=== PATIENT | female | born 1985 | race Asian ===

== ENCOUNTER 2023-02-15 13:02 | Outpatient (CLI) | payer SELFPAY ==
[2023-02-17 15:50] LABS: TB Interpretation Negative (Negative)
== END 2023-02-15 13:03 | disposition home or self-care (01) ==
LOC: LBO 03-30 13:02
PROVIDERS: Visit Provider Nurse Practitioner Family
DX: Z02.1 Encounter for pre-employment examination (principal); Z11.1 Encounter for screening for respiratory tuberculosis
CPT/HCPCS: 36415; 86480

== ENCOUNTER 2024-05-28 20:21 | Outpatient (REF) | payer OTHER, SELFPAY ==
[2024-05-28 20:46] LABS: Hemoglobin A1C 5.2 % (<5.7)
[2024-05-28 20:49] LABS: Calculated LDL 62 mg/dL (<100); Cholesterol 135 mg/dL (<200); HDL Cholesterol 65 mg/dL (40-60); Triglyceride 42 mg/dL (<150)
== END 2024-05-28 20:22 | disposition home or self-care (01) ==
LOC: NCHCN 20:21
PROVIDERS: PCP Nurse Practitioner Family; Visit Provider Nurse Practitioner Family
DX: Z00.00 Encounter for general adult medical examination without abnormal findings (principal)
CPT/HCPCS: 80061; 83036

== ENCOUNTER 2024-08-18 09:19 | Outpatient (REF) | payer OTHER, SELFPAY | END 2024-08-18 09:20 | disposition home or self-care (01) | LOC: LBN 09:19 | PROVIDERS: PCP Nurse Practitioner Family; Visit Provider Nurse Practitioner Family | DX: Z00.00 Encounter for general adult medical examination without abnormal findings (principal) | CPT/HCPCS: 88142; 87624 ==